=== PATIENT | male | born 1960 | race Caucasian/White ===

== ENCOUNTER → 2022-06-30 | Outpatient (CLI) | payer MEDICARE | LOC: LAB 08:00 → LAB SHORT 08:00 | DX: Z12.5 Encounter for screening for malignant neoplasm of prostate (principal); D58.2 Other hemoglobinopathies; E78.6 Lipoprotein deficiency; R73.03 Prediabetes; R68.82 Decreased libido; E61.1 Iron deficiency; E78.49 Other hyperlipidemia; E56.9 Vitamin deficiency, unspecified; E27.49 Other adrenocortical insufficiency | CPT/HCPCS: 85651 ==